=== PATIENT | female | born 1975 | race Caucasian/White ===

== ENCOUNTER 2022-04-06 08:06 | Outpatient (REF) | payer BC, SELFPAY ==
[2022-04-06 11:25] LABS: Red Blood Count 4.88 X10*6/uL (4.20-5.50); White Blood Count 8.1 X10*3/uL (4.8-10.8)
[2022-04-06 11:26] LABS: Hematocrit 46.3 % (37.0-47.0); Hemoglobin 15.4 g/dl (12.0-16.0); Mean Corpuscular HGB Conc 33.3 g/dl (31.0-35.0); Mean Corpuscular Hemoglobin 31.6 pg (27.0-33.0); Mean Corpuscular Volume 94.9 fL (80.0-98.0); Mean Platelet Volume 11.5 fL (9.4-12.3); Platelet Count 218 X10*3/uL (160-400); Red Cell Distribution Width 14.1 % (11.0-16.0)
[2022-04-06 13:36] LABS: Alanine Aminotransferase 16 U/L (0-31); Albumin Level 4.2 g/dL (3.5-5.0); Alkaline Phosphatase 68 U/L (39-117); Anion Gap 12 (12-20); Aspartate Amino Transferase 17 U/L (5-31); Bilirubin Total 0.6 mg/dL (0.0-1.0); Blood Urea Nitrogen 22 mg/dL (9-16); Calcium 9.4 mg/dL (8.4-10.2); Carbon Dioxide 25 mmol/L (22-29); Chloride 106 mmol/L (96-108); Cholesterol 185 mg/dL; Estimated Glomerular Filt Rate > 60; Glucose Fasting 90 mg/dL (60-99); HDL Cholesterol 54 mg/dL; LDL Cholesterol Calculated 119 mg/dl; Potassium 4.4 mmol/L (3.3-5.1); Sodium 139 mmol/L (135-145); Total Protein 7.2 g/dL (6.5-8.0); Triglycerides 60 mg/dL
[2022-04-06 15:09] LABS: TSH reflex Free T4 1.19 uIU/mL (0.32-4.0)
== END 2022-04-06 08:07 | disposition home or self-care (01) ==
LOC: HO.WFDLDS 08:06
PROVIDERS: Visit Provider Hospitalist
DX: Z00.00 Encounter for general adult medical examination without abnormal findings (principal)
CPT/HCPCS: 36415; 80053; 80061; 84443; 85027

== ENCOUNTER 2023-01-01 14:49 | Outpatient (AMB) | payer BC, SELFPAY ==
--- NOTE | 2023-01-01 14:53 | A.OFFPC_ITS ---
Vital Signs 01/01/23 14:54 Height 5 ft 6 in Weight 200 lb 6 oz BMI 32.3 BP 124/70 Blood Pressure Location Lt brachial Position Sitting Respiration 12 Pulse 76 Pulse Source Pulse Oximeter Temp 97.7 F Temp Source Temporal Artery Scan Pulse Oximetry (%) 98 Oxygen Delivery Method Room Air Intake Visit Reasons: DU fu for weight and open access colon screen Intake Note: Patient would like to be put on some type of medication to help with her weight lost. Securities Counselor Required: No Accompanied by: Self / Same As Patient Allergies No Known Allergies Allergy (Verified 01/01/23 15:11) Medication List - Last Reconciled 01/01/23 by Roya Quispe CNP No Known Home Meds Tobacco use date assessed: 06/18/22 Dental Screening Dental Screen Date: 01/01/23 Did you have a dental visit in the last 12 months?: Yes Did you have a dental problem in the last 6 months where you did not have access to dental care?: No Was dental information given to patient?: Patient has dentist HPI HPI Comments History of Present Illness Details 47-year-old female presents with request s for weight management She notes she has struggled to lose weight She gained 2 lb since her last visit in June 2022 She denies acute symptoms at this time. She notes she has never had a colonoscopy or mammogram done; she request referrals for these She states that her last Pap smear test was 7 years ago: Normal [facility] Medical History Hydradenitis Surgical History No pertinent past surgical history Family History Mother Hypertension Clotting disorder No family history of mental disorder Father Hypertension Asthma No family history of mental disorder Maternal Grandmother Hypertension Clotting disorder Thyroid disease No family history of mental disorder Paternal Grandmother No family history of mental disorder Throat cancer Paternal Grandfather No family history of mental disorder Cancer of stomach Social History Housing: House Patient Tobacco Use Status: Former Tobacco user Tobacco use type: Cigarette e-Cigarette/Vaping Use: Never Used service: No Current occupational status: employed 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 Cognitive needs: No Hearing needs: No Vision needs: Yes Questionnaire Thrive Questionnaire Date Thrive assessed: 03/15/22 Review of Systems Const Details: Const Denies chills, Denies fatigue, Denies fever(s), Denies headache(s) and Denies weakness ENT Denies dizziness and Denies headache(s) Card Denies chest pain, Denies lightheadedness, Denies dyspnea and Denies other (Palpitations) Resp Denies cough, Denies dyspnea, Denies wheezing and Denies other ( shortness of breath) GI Denies abdominal pain, Denies melena, Denies hematochezia, Denies change in bowel habits, Denies dyspepsia and Denies nausea Denies hematuria and Denies dysuria Musc Denies abnormal gait, Denies myalgias, Denies arthralgias, Denies numbness and Denies tingling Skin/Breast Denies rash, Denies unusual bruising and Denies wounds Neuro Denies abnormal gait, Denies dizziness, Denies headache(s), Denies memory loss, Denies numbness, Denies Sensory deficit (Neuro), Denies tingling and Denies weakness Psych Denies anxiety, Denies depression, Denies memory loss Endo Denies cold intolerance, Denies fatigue, Denies heat intolerance, Denies polydipsia and Denies polyuria Aller/Immun Denies wheezing Physical exam (Primary Care) Vital Signs: Last Vital Signs Temp 97.7 F 01/01/23 14:54 Pulse 76 01/01/23 14:54 Resp 12 01/01/23 14:54 BP 124/70 01/01/23 14:54 Pulse Ox 98 01/01/23 14:54 Oxygen Delivery Method Room Air 01/01/23 14:54 BMI result Body Mass Index 32.3 Tobacco/Smoking Status: Tobacco use Status Tobacco use date assessed 06/18/22 01/01/23 15:00 Patient Tobacco Use Status Former Tobacco user 01/01/23 15:00 Tobacco use type Cigarette 01/01/23 15:00 e-Cigarette/Vaping Use Never Used 01/01/23 15:00 Thrive Assessment: Date of Thrive Assessment Date Thrive assessed 03/15/22 01/01/23 15:00 Const Other: General: no acute distress and well developed Nutritional Appearance: well nourished Orientation/consciousness: patient oriented x3 [facility] Head: Yes normocephalic and Yes atraumatic Eyes General: appearance normal, both eyes and all related structures Pupils: Equal, round and reactive pupils present EOM: EOMs intact bilaterally Resp Effort & Inspection: normal respiratory effort Auscultation: clear to auscultation bilaterally Cardio Rate: regular rate Rhythm: regular rhythm Heart sounds: S1 normal heart sound present, S2 normal heart sound present, no gallops, no murmurs and no rubs GI Palpation (GI): No Abdominal aortic bruit present, Soft to palpation, nontender, No hepatosplenomegaly present and No Rebound tenderness present Auscultation: normal bowel sounds General: Yes no CVA tenderness Back/Spine/Pelvis Back: no CVA tenderness Cervical Spine: cervical ROM normal and No Cervical spine tenderness Thoracic/Lumbar Spine: thoraco-lumbar ROM normal, No pain with thoraco-lumbar ROM, No thoracic spinal tenderness and No lumbar spinal tenderness Extrem General: Yes normal to inspection, No edema and No calf tenderness Skin General: warm and dry. Normal skin color. Normal skin turgor Lesions: no lesions Rashes: no rashes Trauma: no lacerations or abrasions Wounds: no wounds Nails: normal Neuro General: patient oriented x3, gait normal and no focal neuro deficit Cranial nerves: Yes Equal, round and reactive pupils present Cognition (Neuro): normal cognition Gait exam (Neuro): Normal gait present Sensory Exam: No Sensory deficit (Neuro) Psych Appearance: grossly normal Affect: normal affect Attitude: cooperative Thought process: Normal thought process present Assessment and Plan Assessment & Plan (1) Obesity (BMI 30.0-34.9): Code(s): E66.9 - Obesity, unspecified Plan: Current weight is 200 lb, BMI is 32.3 2 lb weight gain in the last 6 months Wellbutrin ordered. Advised to take 1st dose orally in the morning and 2nd dose around 3-4 p.m. as the medication may increase energy level, making it difficult to fall asleep Referred to rat breeder/dietitian Healthy diet and routine exercise encouraged Follow-up in 1 month or return sooner with symptoms or concerns Verbalized understanding and agreed with treatment plan. (2) Screening mammogram for breast cancer: Code(s): Z12.31 - Encounter for screening mammogram for malignant neoplasm of breast Plan: She notes she has never had a mammogram done Screening mammogram ordered (3) Pap smear for cervical cancer screening: Code(s): Z12.4 - Encounter for screening for malignant neoplasm of cervix Plan: She states that her last Pap smear test was 7 years ago: Normal Referred to manufacturing quality manager (4) Colon cancer screening: Code(s): Z12.11 - Encounter for screening for malignant neoplasm of colon Plan: She states she never had a colonoscopy and is willing to have a colonoscopy done Referred to GI for a colonoscopy Orders: Orders MM screening mammo BI Today Z12.31 - Encounter for screening mammogram for malignant neoplasm of breast Referrals [facility] Referral E66.9 - Obesity, unspecified Gastroenterology Referral Z12.11 - Encounter for screening for malignant neoplasm of colon Medications: New bupropion HCl 75 mg PO BID 60 tabs 0RF 30 days Coding Level of Care Code Est Pt Level 3 (70831) Diagnoses Obesity (BMI 30.0-34.9) E66.9 Screening mammogram for breast cancer Z12.31 Pap smear for cervical cancer screening Z12.4 Colon cancer screening Z12.11
[2023-01-01 14:54] VITALS: BP 124/70; PULSE 76; RESP 12; TEMP 36.5; O2SAT 98; BMI 32.3
== END 2023-01-01 15:50 | disposition home or self-care (01) ==
PROVIDERS: PCP Hospitalist; Visit Provider Nurse Practitioner Family
DX: E66.9 Obesity, unspecified (principal); Z12.31 Encounter for screening mammogram for malignant neoplasm of breast; Z68.32 Body mass index [BMI] 32.0-32.9, adult
CPT/HCPCS: 99213

== ENCOUNTER 2023-02-26 16:01 | Outpatient (AMB) | payer BC, SELFPAY ==
[2023-02-26 16:03] VITALS: BP 126/84; PULSE 79; RESP 13; TEMP 36.3; O2SAT 98; BMI 34.2
--- NOTE | 2023-02-26 16:03 | MHC.PC.OV ---
Vital Signs 02/26/23 16:03 Height 5 ft 6 in Weight 212 lb BMI 34.2 BP 126/84 Blood Pressure Location Rt brachial Position Sitting Respiration 13 Pulse 79 Pulse Source Pulse Oximeter Temp 97.4 F Temp Source Temporal Artery Scan Pulse Oximetry (%) 98 Oxygen Delivery Method Room Air Intake Visit Reasons: f/u wt mgmt Intake Note: Patient states that wellbutrin didnt do anything for her. Accompanied by: Self / Same As Patient Allergies No Known Allergies Allergy (Verified 02/26/23 16:32) Tobacco use date assessed: 02/26/23 Dental Screening Dental Screen Date: 02/26/23 Did you have a dental visit in the last 12 months?: Yes Did you have a dental problem in the last 6 months where you did not have access to dental care?: No Was dental information given to patient?: Patient has dentist HPI HPI Comments History of Present Illness Details 47-year-old female presents for weight management follow-up She was prescribed bupropion for with management at the end of December and was referred to design engineering intern/dietitian She notes stopped taking the bupropion after taking it for 1 month. She states she did not lose any weight She has an appointment with design engineering intern/dietitian next month She requests mounjaro for weight loss and states that she is aware her health plan provides coverage She notes that she has not been making healthy dietary choices. However, she has been exercising She offers no complaints and denies acute symptoms at this time [facility] Medical History Hydradenitis Surgical History No pertinent past surgical history Family History Mother Hypertension Clotting disorder No family history of mental disorder Father Hypertension Asthma No family history of mental disorder Maternal Grandmother Hypertension Clotting disorder Thyroid disease No family history of mental disorder Paternal Grandmother No family history of mental disorder Throat cancer Paternal Grandfather No family history of mental disorder Cancer of stomach Housing: House Patient Tobacco Use Status: Former Tobacco user Tobacco use type: Cigarette e-Cigarette/Vaping Use: Never Used service: No Current occupational status: employed 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 Cognitive needs: No Hearing needs: No Vision needs: No Questionnaire Thrive Questionnaire Date Thrive assessed: 03/15/22 Review of Systems Const Details: Const Denies chills, Denies fatigue, Denies fever(s), Denies headache(s) and Denies weakness ENT Denies dizziness and Denies headache(s) Card Denies chest pain, Denies lightheadedness, Denies dyspnea and Denies other (Palpitations) Resp Denies cough, Denies dyspnea, Denies wheezing and Denies other ( shortness of breath) GI Denies abdominal pain, Denies melena, Denies hematochezia, Denies change in bowel habits, Denies dyspepsia and Denies nausea Denies hematuria and Denies dysuria Musc Denies abnormal gait, Denies myalgias, Denies arthralgias, Denies numbness and Denies tingling Skin/Breast Denies rash, Denies unusual bruising and Denies wounds Neuro Denies abnormal gait, Denies dizziness, Denies headache(s), Denies memory loss, Denies numbness, Denies Sensory deficit (Neuro), Denies tingling and Denies weakness Psych Denies anxiety, Denies depression, Denies memory loss Endo Denies cold intolerance, Denies fatigue, Denies heat intolerance, Denies polydipsia and Denies polyuria Aller/Immun Denies wheezing Physical exam (Primary Care) Vital Signs: Last Vital Signs Temp 97.4 F 02/26/23 16:03 Pulse 79 02/26/23 16:03 Resp 13 02/26/23 16:03 BP 126/84 02/26/23 16:03 Pulse Ox 98 02/26/23 16:03 Oxygen Delivery Method Room Air 02/26/23 16:03 BMI result Body Mass Index 34.2 Tobacco/Smoking Status: Tobacco use Status Tobacco use date assessed 02/26/23 02/26/23 16:16 Patient Tobacco Use Status Former Tobacco user 02/26/23 16:11 Tobacco use type Cigarette 02/26/23 16:11 e-Cigarette/Vaping Use Never Used 02/26/23 16:11 Thrive Assessment: Date of Thrive Assessment Date Thrive assessed 03/15/22 02/26/23 16:11 Const Other: General: no acute distress and well developed Nutritional Appearance: well nourished Orientation/consciousness: patient oriented x3 [facility] Head: Yes normocephalic and Yes atraumatic Eyes General: appearance normal, both eyes and all related structures Pupils: Equal, round and reactive pupils present EOM: EOMs intact bilaterally Resp Effort & Inspection: normal respiratory effort Auscultation: clear to auscultation bilaterally Cardio Rate: regular rate Rhythm: regular rhythm Heart sounds: S1 normal heart sound present, S2 normal heart sound present, no gallops, no murmurs and no rubs GI Palpation (GI): No Abdominal aortic bruit present, Soft to palpation, nontender, No hepatosplenomegaly present and No Rebound tenderness present Auscultation: normal bowel sounds General: Yes no CVA tenderness Back/Spine/Pelvis Back: no CVA tenderness Cervical Spine: cervical ROM normal and No Cervical spine tenderness Thoracic/Lumbar Spine: thoraco-lumbar ROM normal, No pain with thoraco-lumbar ROM, No thoracic spinal tenderness and No lumbar spinal tenderness Extrem General: Yes normal to inspection, No edema and No calf tenderness Skin General: warm and dry. Normal skin color. Normal skin turgor Lesions: no lesions Rashes: no rashes Trauma: no lacerations or abrasions Wounds: no wounds Nails: normal Neuro General: patient oriented x3, gait normal and no focal neuro deficit Cranial nerves: Yes Equal, round and reactive pupils present Cognition (Neuro): normal cognition Gait exam (Neuro): Normal gait present Sensory Exam: No Sensory deficit (Neuro) Psych Appearance: grossly normal Affect: normal affect Attitude: cooperative Thought process: Normal thought process present Results AMB Hemoglobin A1c AMB Hemoglobin A1c 5.6 % Last Edit by Nadira Guevara MA on 02/26/23 17:14 Assessment and Plan Assessment & Plan (1) Obesity (BMI 30.0-34.9): Code(s): E66.9 - Obesity, unspecified Plan: Bupropion was prescribed for weight management. She took the medication for 1 month and stopped because it was not effective in reducing her weight She has not been making healthy dietary choices. She admits to exercising She gained 12 lb since her last visit. She weighs 212 lb today. Her BMI is 34.2 Her A1c today is 5.6% today Denies history of pancreatitis or a personal or family history of medullary thyroid cancer or multiple endorcine neoplasia Mounjaro ordered. Take as prescribed Healthy diet and routine exercise encouraged Follow-up with design engineering intern/dietitian as planned Return in 1 month or sooner with symptoms or concerns Verbalized understanding and agreed with treatment plan Orders: Orders AMB Hemoglobin A1c Today Z13.9 - Encounter for screening, unspecified Medications: New tirzepatide (Mounjaro) 2.5 mg (0.5 mL) subcut QWEEK 4 weeks 2 mL 0RF Coding Level of Care Code Est Pt Level 3 (43553) Diagnoses Obesity (BMI 30.0-34.9) E66.9
== END 2023-02-26 17:06 | disposition home or self-care (01) ==
PROVIDERS: PCP Nurse Practitioner Family; Visit Provider Nurse Practitioner Family
DX: E66.9 Obesity, unspecified (principal); Z68.34 Body mass index [BMI] 34.0-34.9, adult
CPT/HCPCS: 83036; 99213

== ENCOUNTER 2023-04-30 16:04 | Outpatient (AMB) | payer BC, SELFPAY ==
[2023-04-30 16:06] VITALS: BP 124/78; PULSE 86; RESP 13; TEMP 36.3; O2SAT 96; BMI 35.2
--- NOTE | 2023-04-30 16:06 | A.OFFPC_ITS ---
Vital Signs 04/30/23 16:06 Height 5 ft 6 in Weight 218 lb 6 oz BMI 35.2 BP 124/78 Blood Pressure Location Rt brachial Position Sitting Respiration 13 Pulse 86 Pulse Source Pulse Oximeter Temp 97.4 F Temp Source Temporal Artery Scan Pulse Oximetry (%) 96 Oxygen Delivery Method Room Air Intake Visit Reasons: f/u wt mgmt, rescheduled from 03/26 Intake Note: Patient states that she is unable to get wegovy due to it being out of stock. Patient states that Gastro never called to reschedule her colonoscopy and she would like an order put in for a mammogram. Test Desk Trouble Locator Required: No Accompanied by: Self / Same As Patient Allergies No Known Allergies Allergy (Verified 04/30/23 16:21) Medication List - Last Reconciled 04/30/23 by Roya Quispe CNP semaglutide (weight loss) (Wegovy) 0.25 mg (0.5 mL) subcut QWEEK Tobacco use date assessed: 04/30/23 Dental Screening Dental Screen Date: 04/30/23 Did you have a dental visit in the last 12 months?: Yes Did you have a dental problem in the last 6 months where you did not have access to dental care?: No Was dental information given to patient?: Patient has dentist HPI HPI Comments History of Present Illness Details 47-year-old female presents for weight m anagement follow-up She was prescribed Mounjaro in February. She has not taken the medication due to nationwide shortage. She missed her follow-up appointment in March She offers no complaints and denies acute symptoms at this time She has an appointment with resident buyer/dietitian in 2 days She has been exercising at the gym 4-5 days weekly and has been making healthy dietary choices [facility] Medical History Hydradenitis Surgical History No pertinent past surgical history Family History Mother Hypertension Clotting disorder No family history of mental disorder Father Hypertension Asthma No family history of mental disorder Maternal Grandmother Hypertension Clotting disorder Thyroid disease No family history of mental disorder Paternal Grandmother No family history of mental disorder Throat cancer Paternal Grandfather No family history of mental disorder Cancer of stomach Social History Housing: House Patient Tobacco Use Status: Former Tobacco user Tobacco use type: Cigarette e-Cigarette/Vaping Use: Never Used service: No Current occupational status: employed Current occupation: [employer] Cognitive needs: No Hearing needs: No Vision needs: No Questionnaire Thrive Questionnaire Date Thrive assessed: 03/15/22 Review of Systems Const Details: Const Denies chills, Denies fatigue, Denies fever(s), Denies headache(s) and Denies weakness ENT Denies dizziness and Denies headache(s) Card Denies chest pain, Denies lightheadedness, Denies dyspnea and Denies other (Palpitations) Resp Denies cough, Denies dyspnea, Denies wheezing and Denies other ( shortness of breath) GI Denies abdominal pain, Denies melena, Denies hematochezia, Denies change in [place] wel habits, Denies dyspepsia and Denies nausea Denies hematuria and Denies dysuria Musc Denies abnormal gait, Denies myalgias, Denies arthralgias, Denies numbness and Denies tingling Skin/Breast Denies rash, Denies unusual bruising and Denies wounds Neuro Denies abnormal gait, Denies dizziness, Denies headache(s), Denies memory loss, Denies numbness, Denies Sensory deficit (Neuro), Denies tingling and Denies weakness Psych Denies anxiety, Denies depression, Denies memory loss Endo Denies cold intolerance, Denies fatigue, Denies heat intolerance, Denies polydipsia and Denies polyuria Aller/Immun Denies wheezing Physical exam (Primary Care) Vital Signs: Last Vital Signs Temp 97.4 F 04/30/23 16:06 Pulse 86 04/30/23 16:06 Resp 13 04/30/23 16:06 BP 124/78 04/30/23 16:06 Pulse Ox 96 04/30/23 16:06 Oxygen Delivery Method Room Air 04/30/23 16:06 BMI result Body Mass Index 35.2 Tobacco/Smoking Status: Tobacco use Status Tobacco use date assessed 04/30/23 04/30/23 16:15 Patient Tobacco Use Status Former Tobacco user 04/30/23 16:15 Tobacco use type Cigarette 04/30/23 16:15 e-Cigarette/Vaping Use Never Used 04/30/23 16:15 Thrive Assessment: Date of Thrive Assessment Date Thrive assessed 03/15/22 04/30/23 16:15 Const Other: General: no acute distress and well developed Nutritional Appearance: well nourished Orientation/consciousness: patient oriented x3 [facility] Head: Yes normocephalic and Yes atraumatic Eyes General: appearance normal, both eyes and all related structures Pupils: Equal, round and reactive pupils present EOM: EOMs intact bilaterally Resp Effort & Inspection: normal respiratory effort Auscultation: clear to auscultation bilaterally Cardio Rate: regular rate Rhythm: regular rhythm Heart sounds: S1 normal heart sound present, S2 normal heart sound present, no gallops, no murmurs and no rubs GI Palpation (GI): No Abdominal aortic bruit present, Soft to palpation, nontender, No hepatosplenomegaly present and No Rebound tenderness present Auscultation: normal bowel sounds General: Yes no CVA tenderness Back/Spine/Pelvis Back: no CVA tenderness Cervical Spine: cervical ROM normal and No Cervical spine tenderness Thoracic/Lumbar Spine: thoraco-lumbar ROM normal, No pain with thoraco-lumbar ROM, No thoracic spinal tenderness and No lumbar spinal tenderness Extrem General: Yes normal to inspection, No edema and No calf tenderness Skin General: warm and dry. Normal skin color. Normal skin turgor Neuro General: patient oriented x3, gait normal and no focal neuro deficit Cranial nerves: Yes Equal, round and reactive pupils present Cognition (Neuro): normal cognition Gait exam (Neuro): Normal gait present Sensory Exam: No Sensory deficit (Neuro) Psych Appearance: grossly normal Affect: normal affect Attitude: cooperative Thought process: Normal thought process present Assessment and Plan Assessment & Plan (1) Obesity (BMI 30.0-34.9): Code(s): E66.9 - Obesity, unspecified Plan: She gained 6 lb since her last visit. She currently weighs 218 lb, BMI is 35.2 Encouraged to continue to eat healthy and exercise routinely Follow-up with resident buyer/dietitian as planned Schedule an extended exam in 1 month Return sooner with symptoms or concerns Verbalized understanding and agreed with treatment plan Medications: Discontinued semaglutide (weight loss) (Rosanna) administer weeks 1 through 4 of therapy Discontinued Reason: Doctor's Order 0.25 mg (0.5 mL) subcut QWEEK 2 mL 0RF E66.9 - Obesity, unspecified Coding Level of Care Code Est Pt Level 3 (93004) Diagnoses Obesity (BMI 30.0-34.9) E66.9
== END 2023-04-30 16:32 | disposition home or self-care (01) ==
PROVIDERS: PCP Nurse Practitioner Family; Visit Provider Nurse Practitioner Family
DX: E66.9 Obesity, unspecified (principal); Z68.35 Body mass index [BMI] 35.0-35.9, adult
CPT/HCPCS: 99213

== ENCOUNTER 2023-08-26 15:51 | Outpatient (AMB) | payer BC, SELFPAY ==
[2023-08-26 15:58] VITALS: BP 122/78; PULSE 76; O2SAT 98; BMI 32.6
--- NOTE | 2023-08-26 15:58 | A.OFFPC_ITS ---
Vital Signs 08/26/23 15:58 Height 5 ft 6 in Weight 202 lb BMI 32.6 BP 122/78 Blood Pressure Location Rt brachial Position Sitting Pulse 76 Pulse Source Pulse Oximeter Pulse Oximetry (%) 98 Oxygen Delivery Method Room Air Intake Visit Reasons: Personal issues/medications Intake Note: pt is here for anxiety/depression medication due to recent separation with her Allergies No Known Allergies Allergy (Verified 08/26/23 16:19) Tobacco use date assessed: 04/30/23 Dental Screening Dental Screen Date: 04/30/23 HPI HPI Comments History of Present Illness Details 47-year-old female presents with complai nts of depressive and anxiety symptoms. She notes that her for 26 years recently told her he does not want to stay anymore and moved out of the house. He left because I can not speak my mind or scream in front of him. Her 23-year-old son recently had a baby and his girlfriend moved in (with the baby) with the patient and his son. The patient notes the her 17-year-old son is refusing to go to school and started hanging out with his girlfriend in the patient's house. Now that her is no longer living in the house, she does not have the support to handle everything that is happening around her. She also has the stress of losing her . Her night sleep is interrupted by frequent awakenings; she sleeps an average of 3 hours a night. She is tearful throughout the interview. She denies SI/HI. She requests medication and psychotherapy for her current symptoms. [facility] Medical History Hydradenitis Surgical History No pertinent past surgical history Family History Mother Hypertension Clotting disorder No family history of mental disorder Father Hypertension Asthma No family history of mental disorder Maternal Grandmother Hypertension Clotting disorder Thyroid disease No family history of mental disorder Paternal Grandmother No family history of mental disorder Throat cancer Paternal Grandfather No family history of mental disorder Cancer of stomach Social History Housing: House Patient Tobacco Use Status: Former Tobacco user Tobacco use type: Cigarette e-Cigarette/Vaping Use: Never Used service: No Current occupational status: employed Current occupation: [employer] Cognitive needs: No Hearing needs: No Vision needs: No Questionnaire PHQ-9 Over the last 2 weeks, how often have you been bothered by any of the following problems? 1. Little interest or pleasure in doing things: nearly every day 2. Feeling down, depressed, or hopeless: nearly every day 3. Trouble falling or staying asleep, or sleeping too much: nearly every day 4. Feeling tired or having little energy: nearly every day 5. Poor appetite or overeating: nearly every day 6. Feeling bad about yourself - or that you are a failure or have let yourself or your family down: nearly every day 7. Trouble concentrating on things, such as reading the newspaper or watching television: nearly every day 8. Moving or speaking so slowly that other people could have noticed. Or the opposite - being so fidgety or restless that you have been moving around a lot more than usual: not at all 9. Thoughts that you would be better off or of hurting yourself in some way: not at all Total score: 21 Depression Screening Interpretation: Positive Depression Screening Follow-up: New Medication prescribed Depression Screening Done: Yes 06325 - PHQ-9 Billing: Yes Source: Developed by Drs. Tanmay Santillan, Laisha Rodas, Jorgito Hudson and colleagues, with an educational zoraida from [employer]. Thrive Questionnaire Date Thrive assessed: 08/26/23 I am a: Patient What is your living situation today?: I have a steady place to live Within the past 12 months, did the food you bought not last and you didn't have the money to get more?: Never true Within the past 12 months, did you worry whether your food would run out before you got money to buy more?: Never true Do you have trouble paying for medicines?: No Do you have trouble getting transportation to medical appointments?: No Do you have trouble paying your heating and electricity bill?: No Do you have trouble taking care of your child, family member or friend?: No Do you have trouble with day-to-day activities such as bathing, preparing meals, shopping, managing finances, etc.?: No Are you currently unemployed and looking for a job?: No Are you interested in more education?: No Please select the resources that you would like help with: None Currently or been in a relationship where the following occur: no concerns reported THRIVE Score: 0 AUDIT C Alcohol Use Questionnaire (AUDIT-C) 1. How often do you have a drink containing alcohol?: Monthly or less (Occasionally) 2. How many drinks containing alcohol do you have on a typical day when you are drinking?: 1 or 2 3. How often do you have six or more drinks on one occasion?: Never Total Score: 1 Score Reviewed/Action Taken: Yes REBECCA-7 AMB Questionnaire REBECCA-7 Date REBECCA - 7 assessed: 08/26/23 Feeling nervous, anxious, or on edge: 3 = Nearly every day Not being able to stop or control worryin = Nearly every day Worrying too much about different things: 3 = Nearly every day Trouble relaxin = Nearly every day Being so restless that it is hard to sit still: 3 = Nearly every day Becoming easily annoyed or irritable: 3 = Nearly every day Feeling afraid as if something awful might happen: 3 = Nearly every day Total REBECCA-7 score (0-4 normal; 5-9 mild; 10-14 moderate; 15-21 severe): 21 Source: Developed by Drs. Tanmay Santillan, Laisha Rodas, Jorgito Hudson and colleagues, with an educational zoraida from [employer]. REBECCA-7 Assessment Billing REBECCA-7 Assessment Tool: REBECCA-7 Assessment 11431 Review of Systems Const Details: Const Denies chills, Denies fatigue, Denies fever(s), Denies headache(s) and Denies weakness ENT Denies dizziness and Denies headache(s) Card Denies chest pain, Denies lightheadedness, Denies dyspnea and Denies other (Palpitations) Resp Denies cough, Denies dyspnea, Denies wheezing and Denies other ( shortness of breath) GI Denies abdominal pain, Denies melena, Denies hematochezia, Denies change in bowel habits, Denies dyspepsia and Denies nausea Denies hematuria and Denies dysuria Musc Denies abnormal gait, Denies myalgias, Denies arthralgias, Denies numbness and Denies tingling Skin/Breast Denies rash, Denies unusual bruising and Denies wounds Neuro Denies abnormal gait, Denies dizziness, Denies headache(s), Denies memory loss, Denies numbness, Denies Sensory deficit (Neuro), Denies tingling and Denies weakness Psych Denies anxiety, Denies depression, Denies memory loss Endo Denies cold intolerance, Denies fatigue, Denies heat intolerance, Denies polydipsia and Denies polyuria Aller/Immun Denies wheezing Physical exam (Primary Care) Vital Signs: Last Vital Signs Pulse 76 08/26/23 15:58 BP 122/78 08/26/23 15:58 Pulse Ox 98 08/26/23 15:58 Oxygen Delivery Method Room Air 08/26/23 15:58 BMI result Body Mass Index 32.6 Tobacco/Smoking Status: Tobacco use Status Tobacco use date assessed 04/30/23 08/26/23 16:05 Patient Tobacco Use Status Former Tobacco user 08/26/23 16:05 Tobacco use type Cigarette 08/26/23 16:05 e-Cigarette/Vaping Use Never Used 08/26/23 16:05 PHQ-9: PHQ-9 Score PHQ-9: Total score 21 08/26/23 16:05 Depression Screening Interpretation: Positive Depression Screening Follow-up: New Medication prescribed Thrive Assessment: Date of Thrive Assessment Date Thrive assessed 08/26/23 08/26/23 16:05 Currently or been in a relationship where the following occur: no concerns reported Const Other: General: no acute distress and well developed Nutritional Appearance: well nourished Orientation/consciousness: patient oriented x3 HENMT Head: Yes normocephalic and Yes atraumatic Eyes General: appearance normal, both eyes and all related structures Pupils: Equal, round and reactive pupils present EOM: EOMs intact bilaterally Resp Effort & Inspection: normal respiratory effort Auscultation: clear to auscultation bilaterally Cardio Rate: regular rate Rhythm: regular rhythm Heart sounds: S1 normal heart sound present, S2 normal heart sound present, no gallops, no murmurs and no rubs GI Palpation (GI): No Abdominal aortic bruit present, Soft to palpation, nontender, No hepatosplenomegaly present and No Rebound tenderness present Auscultation: normal bowel sounds General: Yes no CVA tenderness Back/Spine/Pelvis Back: no CVA tenderness Cervical Spine: cervical ROM normal and No Cervical spine tenderness Thoracic/Lumbar Spine: thoraco-lumbar ROM normal, No pain with thoraco-lumbar ROM, No thoracic spinal tenderness and No lumbar spinal tenderness Extrem General: Yes normal to inspection, No edema and No calf tenderness Skin General: warm and dry. Normal skin color. Normal skin turgor Lesions: no lesions Rashes: no rashes Trauma: no lacerations or abrasions Wounds: no wounds Nails: normal Neuro General: patient oriented x3, gait normal and no focal neuro deficit Cranial nerves: Yes Equal, round and reactive pupils present Cognition (Neuro): normal cognition Gait exam (Neuro): Normal gait present Sensory Exam: No Sensory deficit (Neuro) Psych Appearance: grossly normal Affect: normal affect Attitude: cooperative Thought process: Normal thought process present Assessment and Plan Assessment & Plan (1) Anxiety and depression: Code(s): F41.9 - Anxiety disorder, unspecified; F32.A - Depression, unspecified Plan: Reports significant depressive and anxiety symptoms related to family stressors. She has been for 26 years and her recently from her. The oldest son recently had a baby and both and baby moved in with patient. Her youngest son refuses to go to school No SI/HI PHQ-9 and REBECCA-7 scores revealed severe anxiety and depression Escitalopram 10 mg daily and hydroxyzine 25 mg 3 times a day as needed ordered. Advised to take as prescribed. Instructed on the risks, benefits, and potential adverse reactions of the medications Message sent to the CHW to send an Urgent referral to a therapist Advised to follow-up in 1 week or return sooner with worsening or new symptoms Verbalized understanding and agreed with treatment plan Medications: New escitalopram oxalate 10 mg PO DAILY 30 days 30 tabs 3RF hydroxyzine HCl 25 mg PO TID 30 days PRN 90 tabs 1RF anxiety Coding Level of Care Code Est Pt Level 4 (87548) Complex EM visit Add On G2211 Diagnoses Anxiety and depression F41.9; F32.A Additional Codes REBECCA-7 Assessment Billing - REBECCA-7 Assessment Tool: REBECCA-7 Assessment 11567 ([id number])
== END 2023-08-26 16:34 | disposition home or self-care (01) ==
PROVIDERS: PCP Nurse Practitioner Family; Visit Provider Nurse Practitioner Family
DX: F41.9 Anxiety disorder, unspecified (principal); F32.A Depression, unspecified
CPT/HCPCS: 99214

== ENCOUNTER 2023-09-06 16:15 | Outpatient (AMB) | payer BC, SELFPAY ==
[2023-09-06 16:22] VITALS: BP 104/70; PULSE 102; RESP 14; TEMP 36.6; O2SAT 97; BMI 31.7
--- NOTE | 2023-09-06 16:22 | MHC.PC.OV ---
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 Accompanied by: Self / Same As Patient Allergies No Known Allergies Allergy (Verified 09/06/23 16:46) Medication List - Last Reconciled 09/06/23 by Roya Quispe CNP escitalopram oxalate 10 mg PO DAILY 30 days hydroxyzine HCl 25 mg PO TID PRN 30 days Tobacco use date assessed: 04/30/23 Dental Screening Dental Screen Date: 04/30/23 HPI HPI Comments History of Present Illness Details 48-year-old female presents for anxiety and depression follow-up She admits to taking her medications as prescribed without adverse reactions She notes that I don't think the medications are working She notes i am sad, because she was for 26 years and her left the marriage. Since he left 3 weeks ago, he heard from him once, to let her know he has moved on. One of her sons recently and had a baby. Her youngers son started going to school after his principal intervene but he continues to leave the house and returns whenever he chooses. Both of his sons live with her. She notes that her sleep is interrupted with an average of 5-5.5 hours. She states that she has an appointment with our CHW next Saturday to help her connect with a therapist. She notes that she delayed the appointment worried not to keep crying as she speaks with the CHW. She denies SI/HI PFSH Medical History Hydradenitis Surgical History No pertinent past surgical history Family History Mother Hypertension Clotting disorder No family history of mental disorder Father Hypertension Asthma No family history of mental disorder Maternal Grandmother Hypertension Clotting disorder Thyroid disease No family history of mental disorder Paternal Grandmother No family history of mental disorder Throat cancer Paternal Grandfather No family history of mental disorder Cancer of stomach Social History Housing: House Patient Tobacco Use Status: Former Tobacco user Tobacco use type: Cigarette e-Cigarette/Vaping Use: Never Used service: No Current occupational status: employed Current occupation: [employer] Cognitive needs: No Hearing needs: No Vision needs: No Questionnaire PHQ-9 Over the last 2 weeks, how often have you been bothered by any of the following problems? 1. Little interest or pleasure in doing things: nearly every day 2. Feeling down, depressed, or hopeless: nearly every day 3. Trouble falling or staying asleep, or sleeping too much: nearly every day 4. Feeling tired or having little energy: nearly every day 5. Poor appetite or overeating: nearly every day 6. Feeling bad about yourself - or that you are a failure or have let yourself or your family down: nearly every day 7. Trouble concentrating on things, such as reading the newspaper or watching television: nearly every day 8. Moving or speaking so slowly that other people could have noticed. Or the opposite - being so fidgety or restless that you have been moving around a lot more than usual: not at all 9. Thoughts that you would be better off or of hurting yourself in some way: not at all Total score: 21 Depression Screening Interpretation: Positive Depression Screening Follow-up: Existing condition, In treatment and New Medication prescribed Depression Screening Done: Yes 08895 - PHQ-9 Billing: Yes Source: Developed by Drs. Tanmay Santillan, Laisha Rodas, Jorgito Hudson and colleagues, with an educational zoraida from [employer]. Thrive Questionnaire Date Thrive assessed: 08/26/23 REBECCA-7 AMB Questionnaire REBECCA-7 Date REBECCA - 7 assessed: 09/06/23 Feeling nervous, anxious, or on edge: 3 = Nearly every day Not being able to stop or control worryin = Nearly every day Worrying too much about different things: 3 = Nearly every day Trouble relaxin = Nearly every day Being so restless that it is hard to sit still: 3 = Nearly every day Becoming easily annoyed or irritable: 3 = Nearly every day Feeling afraid as if something awful might happen: 3 = Nearly every day Total REBECCA-7 score (0-4 normal; 5-9 mild; 10-14 moderate; 15-21 severe): 21 Source: Developed by Drs. Tanmay Santillan, Laisha Rodas, Jorgito Hudson and colleagues, with an educational zoraida from [employer]. REBECCA-7 Assessment Billing REBECCA-7 Assessment Tool: REBECCA-7 Assessment 27403 Review of Systems Const Details: Const Denies chills, Denies fatigue, Denies fever(s), Denies headache(s) and Denies weakness ENT Denies dizziness and Denies headache(s) Card Denies chest pain, Denies lightheadedness, Denies dyspnea and Denies other (Palpitations) Resp Denies cough, Denies dyspnea, Denies wheezing and Denies other ( shortness of breath) GI Denies abdominal pain, Denies melena, Denies hematochezia, Denies change in bowel habits, Denies dyspepsia and Denies nausea Denies hematuria and Denies dysuria Musc Denies abnormal gait, Denies myalgias, Denies arthralgias, Denies numbness and Denies tingling Skin/Breast Denies rash, Denies unusual bruising and Denies wounds Neuro Denies abnormal gait, Denies dizziness, Denies headache(s), Denies memory loss, Denies numbness, Denies Sensory deficit (Neuro), Denies tingling and Denies weakness Psych Reports anxiety, Reports depression, Denies memory loss Endo Denies cold intolerance, Denies fatigue, Denies heat intolerance, Denies polydipsia and Denies polyuria Aller/Immun Denies wheezing Physical exam (Primary Care) Vital Signs: Last Vital Signs Temp 97.8 F 09/06/23 16:22 Pulse 102 H 09/06/23 16:22 Resp 14 09/06/23 16:22 BP 104/70 09/06/23 16:22 Pulse Ox 97 09/06/23 16:22 Oxygen Delivery Method Room Air 09/06/23 16:22 BMI result Body Mass Index 31.7 Tobacco/Smoking Status: Tobacco use Status Tobacco use date assessed 04/30/23 09/06/23 16:30 Patient Tobacco Use Status Former Tobacco user 09/06/23 16:30 Tobacco use type Cigarette 09/06/23 16:30 e-Cigarette/Vaping Use Never Used 09/06/23 16:30 PHQ-9: PHQ-9 Score PHQ-9: Total score 21 09/06/23 16:30 Depression Screening Interpretation: Positive Depression Screening Follow-up: Existing condition, In treatment and New Medication prescribed Thrive Assessment: Date of Thrive Assessment Date Thrive assessed 08/26/23 09/06/23 16:30 Const Other: General: no acute distress and well developed Nutritional Appearance: well nourished Orientation/consciousness: patient oriented x3 HENMT Head: Yes normocephalic and Yes atraumatic Eyes General: appearance normal, both eyes and all related structures Pupils: Equal, round and reactive pupils present EOM: EOMs intact bilaterally Resp Effort & Inspection: normal respiratory effort Auscultation: clear to auscultation bilaterally Cardio Rate: regular rate Rhythm: regular rhythm Heart sounds: S1 normal heart sound present, S2 normal heart sound present, no gallops, no murmurs and no rubs GI Palpation (GI): No Abdominal aortic bruit present, Soft to palpation, nontender, No hepatosplenomegaly present and No Rebound tenderness present Auscultation: normal bowel sounds General: Yes no CVA tenderness Back/Spine/Pelvis Back: no CVA tenderness Cervical Spine: cervical ROM normal and No Cervical spine tenderness Thoracic/Lumbar Spine: thoraco-lumbar ROM normal, No pain with thoraco-lumbar ROM, No thoracic spinal tenderness and No lumbar spinal tenderness Extrem General: Yes normal to inspection, No edema and No calf tenderness Skin General: warm and dry. Normal skin color. Normal skin turgor Neuro General: patient oriented x3, gait normal and no focal neuro deficit Cranial nerves: Yes Equal, round and reactive pupils present Cognition (Neuro): normal cognition Gait exam (Neuro): Normal gait present Sensory Exam: No Sensory deficit (Neuro) Psych Appearance: grossly normal Affect: normal affect Attitude: cooperative Thought process: Normal thought process present Assessment and Plan Assessment & Plan (1) Anxiety and depression: Code(s): F41.9 - Anxiety disorder, unspecified; F32.A - Depression, unspecified Plan: Reports increased anxiety and depression symptoms and sleep disturbance Trazodone ordered for sleep. Advised to take as prescribed. Instructed on the risks, benefits, and potential adverse reactions of the medication Continue to take escitalopram and hydroxyzine as prescribed Informed that he usually take 4-6 weeks for antidepressants to fully take effect Encouraged to meet with with our CHW as planned to help her connect to a therapist as soon as possible Routine exercise encouraged Follow-up in 2 weeks or return sooner with worsening or new symptoms Verbalized understanding and agreed with treatment plan (2) Sleep disturbance: Code(s): G47.9 - Sleep disorder, unspecified Plan: As above Medications: New trazodone 25 mg (1/2 x 50 mg) PO BEDTIME 30 days PRN 30 tabs 2RF sleep Coding Level of Care Code Est Pt Level 4 (58861) Complex EM visit Add On G2211 Diagnoses Anxiety and depression F41.9; F32.A Sleep disturbance G47.9 Additional Codes REBECCA-7 Assessment Billing - REBECCA-7 Assessment Tool: REBECCA-7 Assessment [id number] ([id number])
== END 2023-09-06 17:00 | disposition home or self-care (01) ==
PROVIDERS: PCP Nurse Practitioner Family; Visit Provider Nurse Practitioner Family
DX: G47.9 Sleep disorder, unspecified (principal); F41.9 Anxiety disorder, unspecified; F32.A Depression, unspecified
CPT/HCPCS: 99214

== ENCOUNTER 2023-09-30 11:15 | Outpatient (AMB) | payer BC, SELFPAY ==
--- NOTE | 2023-09-30 11:18 | A.OFFPC_ITS ---
Vital Signs 09/30/23 11:21 Weight 191 lb 6 oz BP 124/72 Blood Pressure Location Rt brachial Position Sitting Pulse 78 Pulse Source Pulse Oximeter Temp 98.4 F Temp Source Oral Pulse Oximetry (%) 93 Intake Visit Reasons: [facility] from [facility] Intake Note: pt here c/o medication that she is taking is not working. Client Technical Specialist Required: No Allergies No Known Allergies Allergy (Verified 09/30/23 11:27) Tobacco use date assessed: 04/30/23 Dental Screening Dental Screen Date: 04/30/23 HPI HPI Comments History of Present Illness Details This is a 48-year-old female who presents to discuss depression and anxiety medication. This is my 1st visit with the patient. She was recently evaluated by my colleague for sleep disturbance and feelings of anxiety and depression. She has been taking Lexapro 10 mg for 5 weeks. She does not feel like it is helping very much. She was placed on trazodone and took up to 50 mg at night, but she is still not able to sleep. She is also using hydroxyzine 25 mg up to 3 times a day. Patient endorses continued anxiety even if she takes it 3 times a day. She was referred to therapy, but she is gordon ving difficulty connecting with the intake provider at the office. The patient tells me that 6 weeks ago her said that he was going to take a break for a couple of weeks from their relationship, and 2 weeks later he told her he was leaving the marriage and had no desire or plan to attempt reconciliation or marital counseling. The patient lived with her , her 17-year-old son, 23-year-old son and 3-month-old grandson and her son's girlfriend. She works 3 days a week at a [employer]. She says her is still paying the mortgage and car insurance, but he told her he is not going to give her a karina more. She can not afford the mortgage on her own. He took her off of their accounts, and he took her credit card. The patient says he told her all of the things he dislikes about her. She does not understand why he is acting this way. He is usually and easy-going person, and she said they never had separations. He denied having a new relationship with someone else. Patient says she is devastated. She has been with him since she was 21 years old. She is very worried about her finances. Her friends are trying to be supportive, but she says she does not feel like doing anything. She does not want to talk to people or go out. She cries frequently throughout the day. When she tries to sleep she has nightmares and dreams. She can not stop her brain from thinking about everything that is going on and all of her unanswered questions. She has also become suspicious because although the phones were in her 's name, she paid the bill, and he changed all of the passwords so she does not have access to the phone bill information anymore. [facility] Medical History (Updated 09/30/23 @ 12:42 by MAHIN Andujar) Sleep pattern disturbance Adjustment reaction with anxiety and depression Hydradenitis Surgical History No pertinent past surgical history Family History Mother Hypertension Clotting disorder No family history of mental disorder Father Hypertension Asthma No family history of mental disorder Maternal Grandmother Hypertension Clotting disorder Thyroid disease No family history of mental disorder Paternal Grandmother No family history of mental disorder Throat cancer Paternal Grandfather No family history of mental disorder Cancer of stomach Social History Housing: House Patient Tobacco Use Status: Former Tobacco user Tobacco use type: Cigarette e-Cigarette/Vaping Use: Never Used service: No Current occupational status: employed 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 Tanmay Santillan, Laisha Rodas, Jorgito Hudson and colleagues, with an educational zoraida from [employer]. Review of Systems Const Details: Constitutional: +Fatigue Psychiatric: No SI/HI. Physical exam (Primary Care) Vital Signs: Last Vital Signs Temp 98.4 F 09/30/23 11:21 Pulse 78 09/30/23 11:21 BP 124/72 09/30/23 11:21 Pulse Ox 93 09/30/23 11:21 Tobacco/Smoking Status: Tobacco use Status Tobacco use date assessed 04/30/23 09/30/23 11:19 Patient Tobacco Use Status Former Tobacco user 09/30/23 11:19 Tobacco use type Cigarette 09/30/23 11:19 e-Cigarette/Vaping Use Never Used 09/30/23 11:19 Thrive Assessment: Date of Thrive Assessment Date Thrive assessed 08/26/23 09/30/23 11:19 Const Other: Constitutional: Alert, in no distress. Respiratory: Clear to auscultation. Cardiovascular: S1 S2 regular. 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 She said initially she did not want to do this because she wanted her back, but she knows she needs to take the next steps. She would definitely benefit from the support of counseling, and our community health worker was able to meet with her today in the room regarding the referral for therapy. Discontinue hydroxyzine- ineffective. Discontinue trazodone. While we could increase the dose I am changing her other medications and want to to avoid her taking too many sedating medications. We will continue escitalopram 10 mg daily for now. Deferred increasing this as she is concerned about potential weight gain with this type of medication. Trial of bupropion XL 150 mg daily. Side effects including black box warning reviewed. Patient denies history of seizures. Trial of lorazepam 0.5 mg twice daily as needed. She plans to reserve this mostly for night. We discussed it is habit-forming medication that we will use as a bridge until symptoms stabilize. 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 We discussed that it can cause sedation and dizziness, and she should not drive or operate heavy machinery on this. 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 She verbalizes understanding and accepts this treatment plan. She will follow-up in 2-3 weeks in person or via telehealth for a medication check. Medications: New bupropion HCl XL 150 mg PO QAM 30 tabs 1RF lorazepam (Ativan) 0.5 mg PO BID 7 days PRN 14 tabs 0RF anxiety Discontinued trazodone Discontinued Reason: Ancillary Entered New Order 25 mg (1/2 x 50 mg) PO BEDTIME 30 days PRN 30 tabs 2RF sleep hydroxyzine HCl Discontinued Reason: None 25 mg PO TID 30 days PRN 90 tabs 1RF anxiety Coding Level of Care Code Est Pt Level 5 (42504) Complex EM visit Add On G2211 Diagnoses Adjustment reaction with anxiety and depression F43.23 Sleep pattern disturbance G47.20 Time Spent (min) 50 Comment 50 minutes spent obtaining history and coordinating care and treatment
[2023-09-30 11:21] VITALS: BP 124/72; PULSE 78; TEMP 36.9; O2SAT 93
== END 2023-09-30 12:39 | disposition home or self-care (01) ==
PROVIDERS: PCP Physician Assistant Medical; Visit Provider Physician Assistant Medical
DX: F43.23 Adjustment disorder with mixed anxiety and depressed mood (principal); G47.20 Circadian rhythm sleep disorder, unspecified type
CPT/HCPCS: 99215

== ENCOUNTER 2023-10-21 08:45 | Outpatient (AMB) | payer BC, SELFPAY ==
[2023-10-21 08:56] VITALS: BP 139/77; PULSE 72; O2SAT 96; BMI 30.7
--- NOTE | 2023-10-21 08:56 | A.OFFPC_ITS ---
Vital Signs 10/21/23 08:56 Height 5 ft 6 in Weight 190 lb BMI 30.7 BP 139/77 Blood Pressure Location Lt brachial Position Sitting Pulse 72 Pulse Source Pulse Oximeter Pulse Oximetry (%) 96 Oxygen Delivery Method Room Air Intake Visit Reasons: med check Intake Note: Patient is here to follow up on medication, Trazadone, Allergies No Known Allergies Allergy (Verified 10/21/23 08:57) Tobacco use date assessed: 04/30/23 Dental Screening Dental Screen Date: 04/30/23 HPI HPI Comments History of Present Illness Details This is a 48-year-old female who presents to discuss depression and anxiety medication. She is doing better since her last visit. She discontinue trazodone and hydroxyzine. She continues Lexapro 10 mg. She started bupropion XL 150 mg daily. She uses lorazepam 0.5 mg twice daily as needed. She was prescribed 14 tablets on 09/30/2023. She has still not connected with a therapist. See prior visit note. She is crying less during the day. She is able to work. She is still fairly withdrawn from social activities. There has not been much change with her situation at home. She is planning to get a full-time job. She is going camping with her friend this weekend. She feels happy about this. She would like to try weight loss medication. She has been walking for exercise for the past year. She follows a healthy diet. She has not lost significant weight. Insurance covered Wegovy, but it was not available. TSH normal at 1.19 in 03/27/2022. Documented at initial visit: The patient tells me that 6 weeks ago her said that he was going to take a break for a couple of weeks from their relationship, and 2 weeks later he told her he was leaving the marriage and had no desire or plan to attempt reconciliation or marital counseling. The patient lived with her , her 17-year-old son, 23-year-old son and 3-month-old grandson and her son's girlfriend. She works 3 days a week at a [employer]. She says her is still paying the mortgage and car insurance, but he told her he is not going to give her a karina more. She can not afford the mortgage on her own. He took her off of their accounts, and he took her credit card. The patient says he told her all of the things he dislikes about her. She does not understand why he is acting this way. He is usually and easy-going person, and she said they never had separations. He denied having a new relationship with someone else. Patient says she is devastated. She has been with him since she was 21 years old. She is very worried about her finances. Her friends are trying to be supportive, but she says she does not feel like doing anything. She does not want to talk to people or go out. She cries frequently throughout the day. When she tries to sleep she has nightmares and dreams. She can not stop her brain from thinking about everything that is going on and all of her unanswered questions. She has also become suspicious because although the phones were in her 's name, she paid the bill, and he changed all of the passwords so she does not have access to the phone bill information anymore. ROS: Constitutional: No unexplained weight loss, fever, chills, fatigue or night sweats. Psychiatric: No SI/HI. Physical exam: Constitutional: Alert, in no distress. Psychiatric: Cooperative. More animated today than initial visit. Tearful at times. [facility] Medical History Sleep pattern disturbance Adjustment reaction with anxiety and depression Hydradenitis Surgical History No pertinent past surgical history Family History Mother Hypertension Clotting disorder No family history of mental disorder Father Hypertension Asthma No family history of mental disorder Maternal Grandmother Hypertension Clotting disorder Thyroid disease No family history of mental disorder Paternal Grandmother No family history of mental disorder Throat cancer Paternal Grandfather No family history of mental disorder Cancer of stomach Social History Housing: House Patient Tobacco Use Status: Former Tobacco user Tobacco use type: Cigarette e-Cigarette/Vaping Use: Never Used service: No Current occupational status: employed 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 Tanmay Santillan, Laisha Rodas, Jorgito Hudson and colleagues, with an educational zoraida from [employer]. Physical exam (Primary Care) Vital Signs: Last Vital Signs Pulse 72 10/21/23 08:56 BP 139/77 10/21/23 08:56 Pulse Ox 96 10/21/23 08:56 Oxygen Delivery Method Room Air 10/21/23 08:56 BMI result Body Mass Index 30.7 Tobacco/Smoking Status: Tobacco use Status Tobacco use date assessed 04/30/23 10/21/23 09:01 Patient Tobacco Use Status Former Tobacco user 10/21/23 09:01 Tobacco use type Cigarette 10/21/23 09:01 e-Cigarette/Vaping Use Never Used 10/21/23 09:01 Thrive Assessment: Date of Thrive Assessment Date Thrive assessed 08/26/23 10/21/23 09:01 Assessment and Plan Assessment & Plan (1) Adjustment reaction with anxiety and depression: Code(s): F43.23 - Adjustment disorder with mixed anxiety and depressed mood (2) Sleep pattern disturbance: Code(s): 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 She is thinking about getting an commercial litigation attorney. She said initially she did not want to do this because she wanted her back, but she knows she needs to take the next steps. She has not been able to connect with a therapist. She spoke with our community outreach manager. She is going to try Trellise. Continue escitalopram 10 mg daily for now. Increase bupropion XL to 300 mg daily. She has leftover tablets so she will try taking 2 of them in the morning. I can send the refill for 300 mg tablets when she needs it. Side effects and black box warning reviewed. Continue lorazepam 0.5 mg twice daily as needed. We discussed it is habit- forming medication that we will use as a bridge until symptoms stabilize. I do not intend to have her on it fpc. We discussed that it can cause sedation and dizziness, and she should not drive or operate heavy machinery on this. 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 She verbalizes understanding and accepts this treatment plan. Prescribed Zepbound. The patient denies contraindications to GLP-1 receptor agonist. We reviewed the FDA preliminary evaluation that has not found evidence that these medications cause suicidal thoughts or actions, but the investigation is ongoing. If the patient develops these symptoms they will stop taking the medication immediately and contact the office. We reviewed more common side effects such as bloating, constipation, nausea and vomiting. We reviewed the administration and dosing schedule. The patient is instructed to continue lifestyle modifications and efforts at weight loss. We discussed how weight loss can cause physiologic changes in the body and that some patients may experience hair thinning/hair loss. We also discussed that the medications are frequently backordered which may result in a delayed start or disruption when taking the medication. The patient understands it is their responsibility to contact alternative pharmacies if the medication is not available at their usual pharmacy. The patient is also made aware that insurance may deny coverage for the medication despite prior authorization. Continue lifestyle modifications to promote weight loss. Follow up in 1 month for medication review. Medications: New tirzepatide (weight loss) (Zepbound) 2.5 mg (0.5 mL) subcut QWEEK 4 weeks 2 mL 0RF Refilled lorazepam (Ativan) 0.5 mg PO BID 7 days PRN 14 tabs 0RF anxiety Coding Level of Care Code Est Pt Level 4 (29899) Complex EM visit Add On G2211 Diagnoses Adjustment reaction with anxiety and depression F43.23 Sleep pattern disturbance G47.20 Obesity (BMI 30.0-34.9) E66.9 Comment
== END 2023-10-21 09:44 | disposition home or self-care (01) ==
PROVIDERS: PCP Physician Assistant Medical; Visit Provider Physician Assistant Medical
DX: F43.23 Adjustment disorder with mixed anxiety and depressed mood (principal); G47.20 Circadian rhythm sleep disorder, unspecified type; E66.9 Obesity, unspecified; Z68.30 Body mass index [BMI] 30.0-30.9, adult
CPT/HCPCS: 99214

== ENCOUNTER 2023-11-18 08:48 | Outpatient (AMB) | payer BC, SELFPAY ==
--- NOTE | 2023-11-18 08:55 | A.OFFPC_ITS ---
Vital Signs 11/18/23 08:56 Height 5 ft 6 in Weight 182 lb 6 oz BMI 29.4 BP 120/74 Blood Pressure Location Lt brachial Position Sitting Respiration 16 Pulse 79 Pulse Source Pulse Oximeter Pulse Oximetry (%) 96 Oxygen Delivery Method Room Air Intake Visit Reasons: med review 30 minutes Intake Note: Medication follow up Allergies No Known Allergies Allergy (Verified 11/18/23 08:57) Tobacco use date assessed: 11/18/23 Dental Screening Dental Screen Date: 04/30/23 HPI HPI Comments History of Present Illness Details This is a 48-year-old female who presents for depression and anxiety. She increase bupropion XL to 300 mg daily. It is helping. She discontinued Lexapro. Previously on trazodone and hydroxyzine which were ineffective. She uses lorazepam 0.5 mg twice daily as needed. This helps. She contacted a therapist recommended by her friend on Saturday. She is waiting for a call back to schedule an appointment. She is crying less during the day. She is able to work. She is still fairly withdrawn from social activities. There has not been much change with her situation at home. Her maintains he wants to file for divorce next year. She started Zepbound for weight loss. No side effects. She has been walking for exercise for the past year. She follows a healthy diet. Documented at initial visit: The patient tells me that 6 weeks ago her said that he was going to take a break for a couple of weeks from their relationship, and 2 weeks later he told her he was leaving the marriage and had no desire or plan to attempt reconciliation or marital counseling. The patient lived with her , her 17-year-old son, 23-year-old son and 3-month-old grandson and her son's girlfriend. She works 3 days a week at a [employer]. She says her is still paying the mortgage and car insurance, but he told her he is not going to give her a karina more. She can not afford the mortgage on her own. He took her off of their accounts, and he took her credit card. The patient says he told her all of the things he dislikes about her. She does not understand why he is acting this way. He is usually and easy-going person, and she said they never had separations. He denied having a new relationship with someone else. Patient says she is devastated. She has been with him since she was 21 years old. She is very worried about her finances. Her friends are trying to be supportive, but she says she does not feel like doing anything. She does not want to talk to people or go out. She cries frequently throughout the day. When she tries to sleep she has nightmares and dreams. She can not stop her brain from thinking about everything that is going on and all of her unanswered questions. She has also become suspicious because although the phones were in her 's name, she paid the bill, and he changed all of the passwords so she does not have access to the phone bill information anymore. ROS: Constitutional: No unexplained weight loss, fever, chills, fatigue or night sweats. Psychiatric: No SI/HI. Physical exam: Constitutional: Alert, in no distress. Psychiatric: Cooperative. More animated today than initial visit. Tearful at times. [facility] Medical History (Reviewed 10/21/23 @ 08:59 by Samanta White [facility]) Sleep pattern disturbance Adjustment reaction with anxiety and depression Hydradenitis Surgical History No pertinent past surgical history Family History Mother Hypertension Clotting disorder No family history of mental disorder Father Hypertension Asthma No family history of mental disorder Maternal Grandmother Hypertension Clotting disorder Thyroid disease No family history of mental disorder Paternal Grandmother No family history of mental disorder Throat cancer Paternal Grandfather No family history of mental disorder Cancer of stomach Social History (Reviewed 10/21/23 @ 08:59 by Samanta White [facility]) Housing: House Patient Tobacco Use Status: Former Tobacco user Tobacco use type: Cigarette e-Cigarette/Vaping Use: Never Used service: No Current occupational status: employed Current occupation: [employer] Cognitive needs: No Hearing needs: No Vision needs: No Questionnaire PHQ-9 Over the last 2 weeks, how often have you been bothered by any of the following problems? 1. Little interest or pleasure in doing things: nearly every day 2. Feeling down, depressed, or hopeless: nearly every day 3. Trouble falling or staying asleep, or sleeping too much: nearly every day 4. Feeling tired or having little energy: nearly every day 5. Poor appetite or overeating: nearly every day 6. Feeling bad about yourself - or that you are a failure or have let yourself or your family down: nearly every day 7. Trouble concentrating on things, such as reading the newspaper or watching television: not at all 8. Moving or speaking so slowly that other people could have noticed. Or the opposite - being so fidgety or restless that you have been moving around a lot more than usual: not at all 9. Thoughts that you would be better off or of hurting yourself in some way: not at all Total score: 18 Depression Screening Interpretation: Positive Depression Screening Done: Yes 86100 - PHQ-9 Billing: Yes Source: Developed by Drs. Tanmay Santillan, Laisha Rodas, Jorgito Hudson and colleagues, with an educational zoraida from [employer]. Thrive Questionnaire Date Thrive assessed: 08/26/23 REBECCA-7 AMB Questionnaire REBECCA-7 Date REBECCA - 7 assessed: 11/18/23 Feeling nervous, anxious, or on edge: 3 = Nearly every day Not being able to stop or control worryin = Nearly every day Worrying too much about different things: 3 = Nearly every day Trouble relaxin = Nearly every day Being so restless that it is hard to sit still: 1 = Several days Becoming easily annoyed or irritable: 1 = Several days Feeling afraid as if something awful might happen: 3 = Nearly every day Total REBECCA-7 score (0-4 normal; 5-9 mild; 10-14 moderate; 15-21 severe): 17 Source: Developed by Drs. Tanmay Santillan, Laisha Rodas, Jorgito Hudson and colleagues, with an educational zoraida from [employer]. REBECCA-7 Assessment Billing REBECCA-7 Assessment Tool: REBECCA-7 Assessment 64662 Physical exam (Primary Care) Vital Signs: Last Vital Signs Pulse 79 11/18/23 08:56 Resp 16 11/18/23 08:56 BP 120/74 11/18/23 08:56 Pulse Ox 96 11/18/23 08:56 Oxygen Delivery Method Room Air 11/18/23 08:56 BMI result Body Mass Index 29.4 Tobacco/Smoking Status: Tobacco use Status Tobacco use date assessed 11/18/23 11/18/23 09:02 Patient Tobacco Use Status Former Tobacco user 11/18/23 09:02 Tobacco use type Cigarette 11/18/23 09:02 e-Cigarette/Vaping Use Never Used 11/18/23 09:02 PHQ-9: PHQ-9 Score PHQ-9: Total score 18 11/18/23 09:22 Depression Screening Interpretation: Positive Thrive Assessment: Date of Thrive Assessment Date Thrive assessed 08/26/23 11/18/23 09:02 Assessment and Plan Assessment & Plan (1) Adjustment reaction with anxiety and depression: Code(s): F43.23 - Adjustment disorder with mixed anxiety and depressed mood (2) Sleep pattern disturbance: Code(s): 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 She met with an deputy county attorney for a consult. She is waiting for a call back to schedule an appointment for therapy. Continue bupropion XL to 300 mg daily. Continue lorazepam 0.5 mg twice daily as needed. We discussed it is habit- forming medication that we will use as a bridge until symptoms stabilize. We discussed that it can cause sedation and dizziness, and she should not drive or operate heavy machinery on this. 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 She verbalizes understanding and accepts this treatment plan. Increase zepbound 2 5 mg once weekly. She accidentally threw out the prescription for ondansetron I gave her if she experiences nausea with this medication. Refilled medication to have on hand. Follow up in 8 weeks for medication review/CPE (follow up if CPE unavailable). Medications: New tirzepatide (weight loss) (Zepbound) 5 mg (0.5 mL) subcut QWEEK 2 mL 0RF ondansetron 4 mg PO Q8H 12 tabs 0RF 4 days Refilled lorazepam (Ativan) 0.5 mg PO BID PRN 14 tabs 0RF anxiety 7 days bupropion HCl XL 300 mg PO QAM 90 tabs 0RF Discontinued escitalopram oxalate Discontinued Reason: Doctor's Order 10 mg PO DAILY 30 days 30 tabs 3RF tirzepatide (weight loss) (Zepbound) Discontinued Reason: None 2.5 mg (0.5 mL) subcut QWEEK 4 weeks 2 mL 0RF Coding Level of Care Code Est Pt Level 4 (33801) Complex EM visit Add On G2211 Diagnoses Adjustment reaction with anxiety and depression F43.23 Sleep pattern disturbance G47.20 Obesity (BMI 30.0-34.9) E66.9 Additional Codes REBECCA-7 Assessment Billing - REBECCA-7 Assessment Tool: REBECCA-7 Assessment [id number] ([id number])
[2023-11-18 08:56] VITALS: BP 120/74; PULSE 79; RESP 16; O2SAT 96; BMI 29.4
== END 2023-11-18 09:49 | disposition home or self-care (01) ==
PROVIDERS: PCP Physician Assistant Medical; Visit Provider Physician Assistant Medical
DX: G47.20 Circadian rhythm sleep disorder, unspecified type (principal); F43.23 Adjustment disorder with mixed anxiety and depressed mood; E66.9 Obesity, unspecified; Z68.29 Body mass index [BMI] 29.0-29.9, adult
CPT/HCPCS: 99214

== ENCOUNTER 2024-02-20 08:23 | Outpatient (AMB) | payer BC, SELFPAY ==
--- NOTE | 2024-02-20 08:38 | MHC.PC.OV ---
Vital Signs 02/20/24 08:41 Height 5 ft 6 in Weight 162 lb BMI 26.1 BP 126/66 Blood Pressure Location Lt brachial Position Sitting Pulse 76 Pulse Source Pulse Oximeter Pulse Oximetry (%) 96 Oxygen Delivery Method Room Air Intake Visit Reasons: cpe/med review Intake Note: Physical. Requests increase in Zepbound Allergies No Known Allergies Allergy (Verified 02/20/24 08:40) Tobacco use date assessed: 11/18/23 Dental Screening Dental Screen Date: 04/30/23 HPI HPI Comments History of Present Illness Details This is a 48-year-old female who presents for a physical exam. She is taking bupropion XL 300 mg daily. She uses lorazepam 0.5 mg as needed. She would like to retry trazodone at a higher dosage for insomnia. She tried 50 mg earlier this year. I sent a prescription for 100 mg nightly as needed. Side effects and administration reviewed. Advised not to drive or operate heavy machinery with the medication. Her filed for divorce. She is figuring out things for herself. She is still very upset about the entire situation. She isn't seeing a therapist right now, but she did earlier this year. Patient would like to increase Zepbound to 10 mg. She denies side effects on her current dose. The patient has lost 20 lb since November on this medication. She continues to follow a healthy diet, increase her water intake and walk for exercise. I sent the new prescription to the pharmacy. She has never had a mammogram. I ordered 1. She has never had a colonoscopy. Refer to [facility]. She is overdue for an annual postbed stitcher appointment. I referred her to Dr. Cao. She would like to see Dermatology regarding acne and hidradenitis. Referral placed to [facility]. She declines influenza vaccine. She will get the shingles vaccine at her pharmacy. ROS: Constitutional: No unexplained weight loss, fever, chills or night sweats. Eyes: No vision changes, blurry vision, double vision, eye pain, eye redness, eye discharge. ENT: No hearing loss, sneezing, congestion, runny nose or sore throat. Respiratory: No shortness of breath, cough or sputum production. Cardiovascular: No chest pain, chest pressure or chest discomfort. No palpitations or pedal edema. Gastrointestinal: No anorexia, nausea, vomiting or diarrhea. No abdominal pain or blood in stool. Genitourinary: No dysuria, hematuria, urinary frequency. Neurologic: No headache, dizziness, syncope, unilateral weakness, ataxia, numbness or tingling in the extremities. Musculoskeletal: No muscle pain, back pain, joint pain or swelling. Hematologic/Lymphatics: No bleeding or bruising. No painful lymph nodes. Endocrine: No cold or heat intolerance. No polyuria or polydipsia. Psychiatric: No SI/HI. Physical exam: Constitutional: Alert, in no distress. Head: Normocephalic. Eyes: Pupils are equal, round and reactive to light. Extraocular muscles intact. Ear, Nose and Throat: Canals clear. TMs normal. Normal nasal mucosa. No nasal discharge. No oral lesions. Neck: Supple, Full range of motion. No lymphadenopathy. No palpable thyroid masses. Respiratory: Clear to auscultation. Cardiovascular: S1 S2 regular. No murmurs. No carotid bruits. Gastrointestinal: Abdomen soft, non-tender, non-distended. Normal bowel sounds. No palpable masses. Neurologic: No focal neurological deficits. Symmetric patellar reflexes. Moves all extremities spontaneously. Sensation intact bilaterally. Skin: No erythema . Acne lesions on face. Musculoskeletal: No gross deformities. Normal range of motion. Extremities: Warm and well perfused. No clubbing, cyanosis or edema. 3+ peripheral pulses bilaterally. Psychiatric: Normal mood and affect [facility] Medical History (Updated 02/20/24 @ 09:07 by MAHIN Andujar) Routine physical examination Sleep pattern disturbance Adjustment reaction with anxiety and depression Hydradenitis Surgical History No pertinent past surgical history Family History Mother Hypertension Clotting disorder No family history of mental disorder Father Hypertension Asthma No family history of mental disorder Maternal Grandmother Hypertension Clotting disorder Thyroid disease No family history of mental disorder Paternal Grandmother No family history of mental disorder Throat cancer Paternal Grandfather No family history of mental disorder Cancer of stomach Social History (Updated 02/20/24 @ 08:41 by Kimberli Rees CMA) Housing: House Alcohol intake: current Patient Tobacco Use Status: Former Tobacco user Tobacco use type: Cigarette e-Cigarette/Vaping Use: Never Used Substance Use Type: Marijuana service: No Current occupational status: employed Current occupation: [employer] Cognitive needs: No Hearing needs: No Vision needs: No Questionnaire PHQ-9 Over the last 2 weeks, how often have you been bothered by any of the following problems? 1. Little interest or pleasure in doing things: more than half the days 2. Feeling down, depressed, or hopeless: more than half the days 3. Trouble falling or staying asleep, or sleeping too much: nearly every day 4. Feeling tired or having little energy: not at all 5. Poor appetite or overeating: not at all 6. Feeling bad about yourself - or that you are a failure or have let yourself or your family down: more than half the days 7. Trouble concentrating on things, such as reading the newspaper or watching television: not at all 8. Moving or speaking so slowly that other people could have noticed. Or the opposite - being so fidgety or restless that you have been moving around a lot more than usual: not at all 9. Thoughts that you would be better off or of hurting yourself in some way: not at all Total score: 9 Source: Developed by Drs. Tanmay Santillan, Laisha Rodas, Jorgito Hudson and colleagues, with an educational zoraida from [employer]. Thrive Questionnaire Date Thrive assessed: 08/26/23 I am a: Patient What is your living situation today?: I have a steady place to live Within the past 12 months, did the food you bought not last and you didn't have the money to get more?: Never true Within the past 12 months, did you worry whether your food would run out before you got money to buy more?: Never true Do you have trouble paying for medicines?: No Do you have trouble getting transportation to medical appointments?: No Do you have trouble paying your heating and electricity bill?: No Do you have trouble taking care of your child, family member or friend?: No Do you have trouble with day-to-day activities such as bathing, preparing meals, shopping, managing finances, etc.?: No Are you currently unemployed and looking for a job?: No Are you interested in more education?: No Please select the resources that you would like help with: None Currently or been in a relationship where the following occur: Controlled Financially THRIVE Score: 1 AUDIT C Alcohol Use Questionnaire (AUDIT-C) 1. How often do you have a drink containing alcohol?: Monthly or less 2. How many drinks containing alcohol do you have on a typical day when you are drinking?: 3 or 4 3. How often do you have six or more drinks on one occasion?: Never Total Score: 2 REBECCA-7 AMB Questionnaire REBECCA-7 Date REBECCA - 7 assessed: 11/18/23 Feeling nervous, anxious, or on edge: 2 = More than half the days Not being able to stop or control worryin = More than half the days Worrying too much about different things: 2 = More than half the days Trouble relaxin = More than half the days Being so restless that it is hard to sit still: 0 = Not at all Becoming easily annoyed or irritable: 2 = More than half the days Feeling afraid as if something awful might happen: 0 = Not at all Total REBECCA-7 score (0-4 normal; 5-9 mild; 10-14 moderate; 15-21 severe): 10 Source: Developed by Drs. Tanmay Santillan, Laisha Rodas, Jorgito Hudson and colleagues, with an educational zoraida from [employer]. Physical exam (Primary Care) Vital Signs: Last Vital Signs Pulse 76 02/20/24 08:41 BP 126/66 02/20/24 08:41 Pulse Ox 96 02/20/24 08:41 Oxygen Delivery Method Room Air 02/20/24 08:41 BMI result Body Mass Index 26.1 Tobacco/Smoking Status: Tobacco use Status Tobacco use date assessed 11/18/23 02/20/24 08:39 Patient Tobacco Use Status Former Tobacco user 02/20/24 08:41 Tobacco use type Cigarette 02/20/24 08:41 e-Cigarette/Vaping Use Never Used 02/20/24 08:41 PHQ-9: PHQ-9 Score PHQ-9: Total score 9 02/20/24 08:45 Thrive Assessment: Date of Thrive Assessment Date Thrive assessed 08/26/23 02/20/24 08:39 Currently or been in a relationship where the following occur: Controlled Financially Coding Level of Care Code Est Pt Prev Care 40-64y(30447) Diagnoses Routine physical examination Z00.00 Assessment & Plan Assessment & Plan (1) Routine physical examination: Code(s): Z00.00 - Encounter for general adult medical examination without abnormal findings Category: Medical Plan: Patient is seen today for a routine physical. 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 Orders: Orders Lipid Panel Today E78.5 - Hyperlipidemia, unspecified, F32.A - Depression, unspecified, F41.9 - Anxiety disorder, unspecified, F43.23 - Adjustment disorder with mixed anxiety and depressed mood, Z00.00 - Encounter for general adult medical examination without abnormal findings TSH reflex Free T4 Today F32.A - Depression, unspecified, F41.9 - Anxiety disorder, unspecified, F43.23 - Adjustment disorder with mixed anxiety and depressed mood, Z00.00 - Encounter for general adult medical examination without abnormal findings Complete Blood Count no Diff Today F32.A - Depression, unspecified, F41.9 - Anxiety disorder, unspecified, F43.23 - Adjustment disorder with mixed anxiety and depressed mood, Z00.00 - Encounter for general adult medical examination without abnormal findings Comprehensive Met. Panel Today F32.A - Depression, unspecified, F41.9 - Anxiety disorder, unspecified, F43.23 - Adjustment disorder with mixed anxiety and depressed mood, Z00.00 - Encounter for general adult medical examination without abnormal findings MM screening mammo BI Today Z12.31 - Encounter for screening mammogram for malignant neoplasm of breast Referrals Open Access Screening Colonoscopy Referral Z12.11 - Encounter for screening for malignant neoplasm of colon, Z12.12 - Encounter for screening for malignant neoplasm of rectum Dermatology Referral L70.9 - Acne, unspecified, L73.2 - Hidradenitis suppurativa 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
[2024-02-20 08:41] VITALS: BP 126/66; PULSE 76; O2SAT 96; BMI 26.1
== END 2024-02-20 09:19 | disposition home or self-care (01) ==
PROVIDERS: PCP Physician Assistant Medical; Visit Provider Physician Assistant Medical
DX: Z00.00 Encounter for general adult medical examination without abnormal findings (principal)

== ENCOUNTER → 2024-02-20 08:23 | Outpatient (BNVA) | payer BC, SELFPAY | PROVIDERS: PCP Physician Assistant Medical; Visit Provider Physician Assistant Medical ==

== ENCOUNTER 2024-02-20 09:38 | Outpatient (REF) | payer BC, SELFPAY ==
[2024-02-20 11:19] LABS: Hemoglobin 13.7 g/dl (12.0-16.0); Mean Corpuscular HGB Conc 33.4 g/dl (31.0-35.0); Mean Corpuscular Hemoglobin 31.4 pg (27.0-33.0); Mean Platelet Volume 11.4 fL (9.4-12.3); Platelet Count 186 X10*3/uL (160-400); Red Blood Count 4.36 X10*6/uL (4.20-5.50); Red Cell Distribution Width 15.8 % (11.0-16.0); White Blood Count 7.2 X10*3/uL (4.8-10.8)
[2024-02-20 11:49] LABS: Alanine Aminotransferase 22 U/L (0-31); Albumin Level 4.1 g/dL (3.5-5.0); Alkaline Phosphatase 65 U/L (39-117); Anion Gap 9 (12-20); Aspartate Amino Transferase 22 U/L (5-31); Bilirubin Total 0.6 mg/dL (0.0-1.0); Blood Urea Nitrogen 26 mg/dL (9-16); Calcium 9.4 mg/dL (8.4-10.2); Carbon Dioxide 31 mmol/L (22-29); Chloride 102 mmol/L (96-108); Cholesterol 153 mg/dL (<200); Estimated Glomerular Filt Rate 53; Glucose Random 74 mg/dL (60-115); HDL Cholesterol 51 mg/dL (>40); LDL Cholesterol Calculated 87 mg/dL (<100); Potassium 4.5 mmol/L (3.3-5.1); Sodium 137 mmol/L (135-145); Total Protein 7.1 g/dL (6.5-8.0); Triglycerides 76 mg/dL (<150)
[2024-02-20 11:58] LABS: TSH reflex Free T4 0.76 uIU/mL (0.32-4.0)
== END 2024-02-20 09:39 | disposition home or self-care (01) ==
LOC: HO.WFDLDS 09:38
PROVIDERS: Visit Provider Physician Assistant Medical
DX: Z00.00 Encounter for general adult medical examination without abnormal findings (principal); E78.5 Hyperlipidemia, unspecified; F43.23 Adjustment disorder with mixed anxiety and depressed mood; F41.9 Anxiety disorder, unspecified; F32.A Depression, unspecified
CPT/HCPCS: 36415; 80053; 80061; 84443; 85027

== ENCOUNTER 2024-04-18 07:50 | Outpatient (REF) | payer BC, SELFPAY | END 2024-04-18 07:51 | disposition home or self-care (01) | LOC: HO.MAMMO 07:50 | PROVIDERS: PCP Physician Assistant Medical; Visit Provider Physician Assistant Medical | DX: Z12.31 Encounter for screening mammogram for malignant neoplasm of breast (principal) | CPT/HCPCS: 77063; 77067 ==

== ENCOUNTER → 2024-04-18 08:00 | Outpatient (BNV) | payer BC, SELFPAY | PROVIDERS: PCP Physician Assistant Medical; Visit Provider Internal Medicine | DX: Z12.31 Encounter for screening mammogram for malignant neoplasm of breast (principal) | CPT/HCPCS: 77063; 77067 ==

== ENCOUNTER 2024-05-30 17:59 | Emergency (ER) | payer OTHER, BC, SELFPAY ==
[2024-05-30 18:03] VITALS: BP 160/78; PULSE 98; O2SAT 99
--- NOTE | 2024-05-30 18:30 | PC.NURSE ---
pt was triaged to the WR by charge nurse and she left the wr without being seen/triaged
== END 2024-05-30 18:44 | disposition left against medical advice (07) ==
PROVIDERS: Emergency Provider Emergency Medicine
DX: Z04.1 Encounter for examination and observation following transport accident (principal); M25.531 Pain in right wrist; Z53.21 Procedure and treatment not carried out due to patient leaving prior to being seen by health care provider

== ENCOUNTER 2024-06-04 11:28 | Outpatient (AMB) | payer OTHER, BC, SELFPAY ==
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
[2024-06-04 11:37] VITALS: BP 122/70; PULSE 96; RESP 12; TEMP 36.1; O2SAT 96; BMI 23.5
== END 2024-06-04 13:45 | disposition home or self-care (01) ==
PROVIDERS: PCP Physician Assistant Medical; Visit Provider Physician Assistant Medical
DX: M25.561 Pain in right knee (principal); S16.1XXA Strain of muscle, fascia and tendon at neck level, initial encounter; S29.012A Strain of muscle and tendon of back wall of thorax, initial encounter; S66.911A Strain of unspecified muscle, fascia and tendon at wrist and hand level, right hand, initial encounter; M79.644 Pain in right finger(s)

== ENCOUNTER → 2024-06-04 11:28 | Outpatient (BNVA) | payer BC, SELFPAY | PROVIDERS: PCP Physician Assistant Medical; Visit Provider Physician Assistant Medical ==

== ENCOUNTER 2024-07-17 12:00 | Outpatient (RCR) | payer OTHER, BC, SELFPAY ==
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
--- NOTE | 2024-08-27 08:14 | MHC.PT.DC ---
[facility] [place] Office [place] Office [place] Office [address] [phone] F: [phone] F: [phone] F: [phone] F: [phone] Physical Therapy Discharge Report Diagnosis: Strain of muscles and tendon of back wall of thorax, Neck strain Date of Surgery: NA Date of Evaluation: 06/23/24 Date of Discharge: 08/27/24 Treatments to Date: 4 Cancellations to Date: 4 No Shows to Date: 1 Discharge Status: Visit Non-compliance Discharge Summary: Lelo attended only 4 PT visits. She canceled 4 and no showed 1 time. She is therefore being d/c from PT for non compliance. Electronically signed by: Gladys Brown, PT DPT Please sign and return to therapist. Thank you for your referral.
== END 2024-08-27 08:14 | disposition home or self-care (01) ==
LOC: HO.PT 12:00
PROVIDERS: PCP Physician Assistant Medical; Visit Provider Physician Assistant Medical
DX: S66.911D Strain of unspecified muscle, fascia and tendon at wrist and hand level, right hand, subsequent encounter (principal); S29.012D Strain of muscle and tendon of back wall of thorax, subsequent encounter; S16.1XXD Strain of muscle, fascia and tendon at neck level, subsequent encounter; M25.561 Pain in right knee; V89.2XXD Person injured in unspecified motor-vehicle accident, traffic, subsequent encounter
CPT/HCPCS: 97110; 97140; 97161; 97530

== ENCOUNTER 2024-08-10 11:22 | Outpatient (AMB) | payer BC, SELFPAY ==
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
[2024-08-10 11:33] VITALS: BP 136/76; PULSE 81; TEMP 37; O2SAT 98; BMI 22.6
== END 2024-08-10 12:11 | disposition home or self-care (01) ==
LOC: HO.HMCFM 11:23
PROVIDERS: PCP Physician Assistant Medical; Visit Provider Physician Assistant Medical
DX: M54.9 Dorsalgia, unspecified (principal); L73.2 Hidradenitis suppurativa

== ENCOUNTER → 2024-08-10 11:22 | Outpatient (BNVA) | payer BC, SELFPAY | PROVIDERS: PCP Physician Assistant Medical; Visit Provider Physician Assistant Medical | DX: L73.2 Hidradenitis suppurativa (principal); M54.9 Dorsalgia, unspecified | CPT/HCPCS: 96127 ==